=== PATIENT | female | born 1970 | race Caucasian/White ===

== ENCOUNTER → 2016-10-24 | Outpatient (CLI) | payer OTHER ==
[~2016-10-24] MED LIST: LVT.025T PO
[2016-10-24 09:35] LABS: ALANINE AMINOTRANSFERASE 26 U/L (0-55); ALBUMIN 3.9 GM/DL (3.2-4.5); ANION GAP 9 MMOL/L (5-14); ASPARTATE AMINO TRANSFERASE 28 U/L (5-34); BILIRUBIN,TOTAL 0.8 MG/DL (0.1-1.0); BLOOD UREA NITROGEN 11 MG/DL (7-18); BUN/CREATININE RATIO 14; CALCIUM 9.2 MG/DL (8.5-10.1); CARBON DIOXIDE 26 MMOL/L (21-32); CHLORIDE 103 MMOL/L (98-107); CHOLESTEROL 206 MG/DL (< 200); DIRECT LDL 151 MG/DL (1-129); GFR ESTIMATED > 60; GLUCOSE 105 MG/DL (70-105); POTASSIUM 4.3 MMOL/L (3.6-5.0); SODIUM 138 MMOL/L (135-145); TOTAL PROTEIN 7.2 GM/DL (6.4-8.2); TRIGLYCERIDES 138 MG/DL (<150); VLDL CHOLESTEROL 28 MG/DL (5-40)
[2016-10-24 09:58] LABS: THYROID STIMULATING HORMONE 3.54 UIU/ML (0.35-4.94)
== END ==
LOC: LAB 08:49
PROVIDERS: ATTEND Nurse Practitioner Family
DX: E78.2 Mixed hyperlipidemia (principal); E03.9 Hypothyroidism, unspecified
CPT/HCPCS: 36415; 80053; 80061; 84443

== ENCOUNTER 2017-02-03 13:29 | Emergency (ER) | payer OTHER ==
[~2017-02-03] VITALS: Ht 162.6 cm; Wt 107.5 kg
[2017-02-03 14:18] LABS: BILIRUBIN,URINE NEGATIVE (NEGATIVE); KETONES,URINE NEGATIVE (NEGATIVE); LEUKOCYTE ESTERASE ,URINE 2+ (NEGATIVE); NITRITE,URINE NEGATIVE (NEGATIVE); PH,URINE 6 (5-9); PROTEIN,URINE NEGATIVE (NEGATIVE); UROBILINOGEN,URINE NORMAL (NORMAL)
[2017-02-03 14:25] LABS: BASOPHILS % (AUTO) 0 % (0-10); EOSINOPHILS # (AUTO) 0.1 10^3/uL (0.0-0.3); EOSINOPHILS % (AUTO) 1 % (0-10); LYMPHOCYTES # (AUTO) 1.6 X 10^3 (1.0-4.0); LYMPHOCYTES % (AUTO) 16 % (12-44); MEAN CORPUSCULAR HEMOGLOBIN 29 PG (25-34); MEAN CORPUSCULAR HGB CONC 33 G/DL (32-36); MEAN CORPUSCULAR VOLUME 89 FL (80-99); MEAN PLATELET VOLUME 10.3 FL (7.4-10.4); MONOCYTES # (AUTO) 0.6 X 10^3 (0.0-1.0); MONOCYTES % (AUTO) 6 % (0-12); NEUTROPHILS # (AUTO) 7.8 X 10^3 (1.8-7.8); NEUTROPHILS % (AUTO) 77 % (42-75); PLATELET COUNT 231 10^3/uL (130-400); RED BLOOD COUNT 4.72 10^6/uL (4.35-5.85); RED CELL DISTRIBUTION WIDTH 14.1 % (10.0-14.5); WHITE BLOOD COUNT 10.2 10^3/uL (4.3-11.0)
[2017-02-03 14:42] VITALS: BP 136/98
[2017-02-03 14:45] LABS: ALANINE AMINOTRANSFERASE 27 U/L (0-55); ALBUMIN 4.2 GM/DL (3.2-4.5); ANION GAP 14 MMOL/L (5-14); ASPARTATE AMINO TRANSFERASE 23 U/L (5-34); BILIRUBIN,TOTAL 0.8 MG/DL (0.1-1.0); BLOOD UREA NITROGEN 11 MG/DL (7-18); BUN/CREATININE RATIO 14; CALCIUM 9.5 MG/DL (8.5-10.1); CARBON DIOXIDE 22 MMOL/L (21-32); CHLORIDE 101 MMOL/L (98-107); GFR ESTIMATED > 60; GLUCOSE 109 MG/DL (70-105); POTASSIUM 3.9 MMOL/L (3.6-5.0); SODIUM 137 MMOL/L (135-145); TOTAL PROTEIN 7.9 GM/DL (6.4-8.2)
--- NOTE | 2017-02-03 14:45 | ED General ---
General Chief Complaint: Dizziness/Syncope Stated Complaint: NAUSEA/DIZZINESS/ODD URINE ODOR Nursing Triage Note: AMB TO ROOM REPORTS HAS BEEN DIZZY SINCE SATURDAY . AND LAST 2 DAYS NOTICED URINE SMELLING LIKE FISH. Nursing Sepsis Screen: No Definite Risk Source of Information: Patient Exam Limitations: No Limitations History of Present Illness Time Seen by Provider: 13:34 Initial Comments This 46-year-old woman presents to the emergency room with complaints of feeling ill since January 28. Symptoms include a strong odor to her urine, questionable fever, nausea, loose stools, lower back pain, weakness, poor appetite, and lightheadedness particularly upon standing without vertigo. Allergies and Home Medications Allergies Coded Allergies: No Known Drug Allergies (Unverified , 09/12/09) Home Medications Levothyroxine Sodium 25 Mcg Tablet, 1 EACH PO DAILY, (Reported) Promethazine HCl 25 Mg Tablet, 25 MG PO Q6H PRN for NAUSEA/VOMITING, #10 Prescribed by: MIKIE SANTORO on 02/03/17 7763 Constitutional: see HPI EENTM: no symptoms reported Respiratory: no symptoms reported Cardiovascular: see HPI Gastrointestinal: see HPI Genitourinary: see HPI : No Musculoskeletal: see HPI Skin: no symptoms reported Psychiatric/Neurological: See HPI Hematologic/Lymphatic: No Symptoms Reported Immunological/Allergic: no symptoms reported Past Nnqfczl-Pbylqr-Nqrsgx Hx Patient Social History Alcohol Use: Denies Use Recreational Drug Use: No Smoking Status: Never a Smoker Recent Foreign Travel: No Contact w/Someone Who Travel: No Recent Infectious Disease Expo: No Surgeries History of Surgeries: Yes (wisdom teeth) Surgeries: Orthopedic Respiratory History of Respiratory Disorde: No Cardiovascular History of Cardiac Disorders: No Neurological History of Neurological Disord: No Reproductive System Hx Reproductive Disorders: No Sexually Transmitted Disease: No Genitourinary History of Genitourinary Disor: No Gastrointestinal History of Gastrointestinal Di: No Musculoskeletal History of Musculoskeletal Dis: Yes (LEFT KNEE) Endocrine History of Endocrine Disorders: Yes Endocrine Disorders: Hypothyroidsim HEENT History of HEENT Disorders: No Cancer History of Cancer: No Psychosocial History of Psychiatric Problem: No Blood Transfusions History of Blood Disorders: No Family Medical History Significant Family History: Heart Disease, Hypertension, Renal Disease (PKD), Other Conditions/Hx (hypothyroidism, Waldenstrom) Physical Exam Vital Signs Vital Sign - Last 12Hours 02/03/17 13:48 Temp 97.9 Pulse 61 Resp 18 B/P (MAP) 148/109 Pulse Ox 99 O2 Delivery Room Air Capillary Refill : Less Than 3 Seconds General Appearance: No Apparent Distress, WD/WN HEENT: PERRL/EOMI, Normal ENT Inspection, Pharynx Normal Neck: Normal Inspection, Supple, No Carotid Bruit Respiratory: Lungs Clear, Normal Breath Sounds, No Accessory Muscle Use, No Respiratory Distress Cardiovascular: Regular Rate, Rhythm, No Edema, No Murmur Gastrointestinal: Normal Bowel Sounds, Non Tender, Soft Extremity: Normal Inspection, Non Tender, No Pedal Edema Neurologic/Psychiatric: Alert, Oriented x3, No Motor/Sensory Deficits, Normal Mood/Affect, dam tender II-XII Norm as Tested, Other (disequilibrium with standing and ambulation. Normal finger to nose and heel to felix) Skin: Normal Color, Warm/Dry Progress/Results/Core Measures Suspected Sepsis Recent Fever Within 48 Hours: No Infection Criteria Present: None New/Unexplained Altered Menta: No Sepsis Screen: No Definite Risk Sepsis Diagnosis: SIRS Temperature:97.9 Pulse: 61 Respiratory Rate: 18 Laboratory Tests 02/03/17 14:19: White Blood Count 10.2 Blood Pressure 148 /109 Mean: 122 Laboratory Tests 02/03/17 14:19: Creatinine 0.80, Platelet Count 231, Total Bilirubin 0.8 Results/Orders Lab Results Laboratory Tests Test 02/03/17 14:12 02/03/17 14:19 Range/Units Urine Color YELLOW Urine Clarity CLEAR Urine pH 6 5-9 Urine Specific Edmond 1.010 L 1.016-1.022 Urine Protein NEGATIVE NEGATIVE Urine Glucose (UA) NEGATIVE NEGATIVE Urine Ketones NEGATIVE NEGATIVE Urine Nitrite NEGATIVE NEGATIVE Urine Bilirubin NEGATIVE NEGATIVE Urine Urobilinogen NORMAL NORMAL MG/DL Urine Leukocyte Esterase 2+ H NEGATIVE Urine RBC (Auto) NEGATIVE NEGATIVE Urine RBC NONE /HPF Urine WBC 2-5 /HPF Urine Squamous Epithelial Cells 10-25 H /HPF Urine Crystals NONE /LPF Urine Bacteria FEW H /HPF Urine Casts NONE /LPF Urine Mucus NEGATIVE /LPF Urine Culture Indicated NO White Blood Count 10.2 4.3-11.0 10^3/uL Red Blood Count 4.72 4.35-5.85 10^6/uL Hemoglobin 13.9 11.5-16.0 G/DL Hematocrit 42 35-52 % Mean Corpuscular Volume 89 80-99 FL Mean Corpuscular Hemoglobin 29 25-34 PG Mean Corpuscular Hemoglobin Concent 33 32-36 G/DL Red Cell Distribution Width 14.1 10.0-14.5 % Platelet Count 231 130-400 10^3/uL Mean Platelet Volume 10.3 7.4-10.4 FL Neutrophils (%) (Auto) 77 H 42-75 % Lymphocytes (%) (Auto) 16 12-44 % Monocytes (%) (Auto) 6 0-12 % Eosinophils (%) (Auto) 1 0-10 % Basophils (%) (Auto) 0 0-10 % Neutrophils # (Auto) 7.8 1.8-7.8 X 10^3 Lymphocytes # (Auto) 1.6 1.0-4.0 X 10^3 Monocytes # (Auto) 0.6 0.0-1.0 X 10^3 Eosinophils # (Auto) 0.1 0.0-0.3 10^3/uL Basophils # (Auto) 0.0 0.0-0.1 10^3/uL Sodium Level 137 135-145 MMOL/L Potassium Level 3.9 3.6-5.0 MMOL/L Chloride Level 101 98-107 MMOL/L Carbon Dioxide Level 22 21-32 MMOL/L Anion Gap 14 5-14 MMOL/L Blood Urea Nitrogen 11 7-18 MG/DL Creatinine 0.80 0.60-1.30 MG/DL Estimat Glomerular Filtration Rate > 60 BUN/Creatinine Ratio 14 Glucose Level 109 H 70-105 MG/DL Calcium Level 9.5 8.5-10.1 MG/DL Total Bilirubin 0.8 0.1-1.0 MG/DL Aspartate Amino Transf (AST/SGOT) 23 5-34 U/L Alanine Aminotransferase (ALT/SGPT) 27 0-55 U/L Alkaline Phosphatase 89 40-136 U/L Total Protein 7.9 6.4-8.2 GM/DL Albumin 4.2 3.2-4.5 GM/DL Thyroid Stimulating Hormone (TSH) 3.16 0.35-4.94 UIU/ML Free Thyroxine 0.98 0.70-1.48 NG/DL My Orders Orders - MIKIE HAIR MD Ua Culture If Indicated (02/03/17 13:34) Saline Lock/Iv-Start (02/03/17 13:58) Ekg Tracing (02/03/17 13:58) Monitor-Rhythm Ecg Trace Only (02/03/17 13:58) Cbc With Automated Diff (02/03/17 13:58) Comprehensive Metabolic Panel (02/03/17 13:58) Thyroid Stimulating Hormone (02/03/17 13:58) Free T4 (Free Thyroxine) (02/03/17 13:58) Ns Iv 1000 Ml (Sodium Chloride 0.9%) (02/03/17 15:33) Ct Angio Head/Neck (02/03/17 17:09) Iohexol Injection (Omnipaque 350 Mg/Ml 1 (02/03/17 17:15) Ns (Ivpb) (Sodium Chloride 0.9% Ivpb Bag (02/03/17 17:15) Pharmacy Communication (Pharmacy Communi (02/03/17 17:15) Ns Iv 1000 Ml (Sodium Chloride 0.9%) (02/03/17 18:10) Medications Given in ED Current Medications Medications Dose Ordered Sig/Saadia Route Start Time Stop Time Status Last Admin Dose Admin Iohexol 100 ml ONCE ONCE IV 02/03/17 17:15 02/03/17 17:16 DC 02/03/17 17:56 85 ML Sodium Chloride 100 ml ONCE ONCE IV 02/03/17 17:15 02/03/17 17:16 DC 02/03/17 17:56 80 ML Sodium Chloride 1,000 ml @ 0 mls/hr Q0M ONCE IV 02/03/17 15:33 02/03/17 15:35 DC 02/03/17 15:44 1,000 MLS/HR Sodium Chloride 1,000 ml @ 0 mls/hr Q0M ONCE IV 02/03/17 18:10 02/03/17 18:12 DC 02/03/17 18:16 1,000 MLS/HR Vital Signs/I&O Vital Sign - Last 12Hours 02/03/17 02/03/17 13:48 14:42 Temp 97.9 Pulse 61 86 Resp 18 18 B/P (MAP) 148/109 136/98 Pulse Ox 99 99 O2 Delivery Room Air Room Air Intake and Output 02/04/17 00:00 Intake Total 1000 ml Balance 1000 ml Capillary Refill : Less Than 3 Seconds Blood Pressure Mean: 122 Progress Note #1: Time: 15:35 Progress Note Workup was unremarkable. Orthostatic blood pressures failed to reviewed reveal any orthostatic hypotension. Measurement of blood pressures was difficult as the cuff would not repeat on the upper arm. A radial cuff was used. Patient did have significant lightheadedness upon standing. A trial of IV fluids will be administered and patient will be asked to try standing again after infusion is complete. Progress Note #2: Time: 17:09 Progress Note Patient still has a lightheadedness upon sitting and standing. This persists even after a liter of IV fluids. Blood pressures during sitting and standing showed no orthostatic changes. Patient states when she is walking at home she feels a disequilibrium as if walking on a boat or being off balance. She denies any spinning or vertigo-like dizziness. CT angiogram of the head and neck has been ordered to evaluate for posterior circulation defects or carotid disease. Progress Note #3: Time: 18:[address] angiogram of the head and neck was unremarkable. Feng-Hallpike maneuver was performed and was negative. Patient's symptoms may be simply related to a viral labyrinthitis. She is working on a second liter of IV fluids. She will be discharged with symptomatic management and outpatient follow-up. ECG Initial ECG Impression Date: Feb 03, 2017 Initial ECG Impression Time: 14:06 Initial ECG Rate: 62 Initial ECG Rhythm: Normal Sinus Initial ECG Intervals: Normal Initial ECG Impression: Normal Comment Normal sinus rhythm with no ST elevation or depression. No abnormal intervals or axis deviation. Departure Impression Impression: Primary Impression: Disequilibrium Additional Impressions: Weakness Loss of appetite Nausea Disposition: 01 HOME, SELF-CARE Condition: Stable Departure-Patient Inst. Decision time for Depature: 18:30 Referrals: IJEOMA FIERRO DO (PCP) Primary Care Physician LILIYA GILBERT (Family) Primary Care Physician Patient Instructions: NO INSTRUCTIONS GIVEN Add. Discharge Instructions: Discontinue sinus and decongestant medications. Follow-up with your primary care provider soon as possible. Return to emergency room if symptoms worsen. You may use Phenergan (promethazine) as prescribed for nausea. You may use meclizine per package instructions for dizziness/disequilibrium. All discharge instructions reviewed with patient and/or family. Voiced understanding. Scripts Promethazine HCl (Promethazine Tablet) 25 Mg Tablet 25 MG PO Q6H Y for NAUSEA/VOMITING, #10 TAB Prov: BRUEGGEMANN,MIKIE T MD 02/03/17 Copy Copies To 1: IJEOMA FIERRO JOSHUA T MD Feb 03, 2017 14:45
[2017-02-03 15:05] LABS: THYROID STIMULATING HORMONE 3.16 UIU/ML (0.35-4.94)
[2017-02-03] MEDS ORDERED: NS IV 1000 ML 1,000 ML IV ONE ×2 (15:33→18:10)
[2017-02-03] MEDS ORDERED: IOHEXOL 350 MG/ML 100 ML (OMNIPAQUE 350) VIAL IV ONE (17:15)
[2017-02-03] MEDS ORDERED: NS 100 ML (IVPB) BAG IV ONE (17:15)
--- NOTE | 2017-02-03 18:19 | Diagnostic Imaging Report ---
PROCEDURE: CT angiography of the head and CT angiography of the neck with and without contrast. TECHNIQUE: Contiguous noncontrast images were obtained from the skull base through the vertex. After intravenous contrast administration, helical CT angiography of the neck was performed. Source data was reformatted into multiple MIP projections. Delayed post contrast acquisition was also obtained. INDICATION: Dizziness. Weakness. Skull fracture. COMPARISON: None. FINDINGS: Noncontrast head CT demonstrates no intracranial hemorrhage, mass effect, hydrocephalus or extra axial fluid collections. No CT evidence of acute infarction. Osseous structures are intact. The paranasal sinuses and mastoids are clear. Delayed post contrast imaging demonstrates no abnormal intracranial enhancement. CTA demonstrates a conventional aortic arch. The basilar, bilateral carotid, vertebral, anterior cerebral, middle cerebral and posterior cerebral arteries are widely patent without evidence of aneurysm. Codominant vertebral arteries. The superior, anterior inferior and posterior inferior cerebellar artery origins are patent. The dural venous sinuses are grossly patent on this nondedicated exam. No acute CT findings in the cervical spine. No evidence of high-grade spinal canal narrowing. The visualized soft tissues of the neck are unremarkable. IMPRESSION: No high-grade narrowing or aneurysm involving the major arteries in the head and neck. No acute intracranial CT findings. Dictated by: Dictated on workstation # [id number]
[2017-02-03] MEDS ORDERED: PROM25TA14 PO (18:45)
[2017-02-03 18:51] VITALS: BP 137/90
== END 2017-02-03 19:01 | disposition home or self-care (01) ==
LOC: EDUNIT# 13:29 → ER 13:30
DX: E87.8 Other disorders of electrolyte and fluid balance, not elsewhere classified (principal); R63.0 Anorexia; E03.9 Hypothyroidism, unspecified; Z82.49 Family history of ischemic heart disease and other diseases of the circulatory system
CPT/HCPCS: 36415; 70496; 70498; 80053; 81000; 84439; 84443; 85025; 93005; 93041

== ENCOUNTER → 2017-02-12 | Outpatient (CLI) | payer OTHER ==
[~2017-02-12] MED LIST changes: +PROM25TA14 PO
--- NOTE | 2017-02-13 18:32 | Diagnostic Imaging Report ---
Bilateral screening mammogram 2D views with tomosynthesis The current study was also evaluated with a Computer Aided Detection (CAD) system. Indication: Screening. No current complaints stated on the questionnaire. COMPARISON: 03/27/2011. FINDINGS: The breasts are composed of scattered fibroglandular densities. Scattered benign-appearing calcifications are seen. Allowing for technique and positional differences, no suspicious change is seen. IMPRESSION: No significant change. ACR BI-RADS Category 2: Benign findings. Result letter will be mailed to the patient. Note: At least 10% of breast cancer is not imaged by mammography. Dictated by: Dictated on workstation # [id number]
== END ==
LOC: RAD 09:11
PROVIDERS: ATTEND Nurse Practitioner Family
DX: Z12.31 Encounter for screening mammogram for malignant neoplasm of breast (principal)
CPT/HCPCS: 77067

== ENCOUNTER 2017-06-29 13:11 | Emergency (ER) | payer OTHER ==
[~2017-06-29] VITALS: Ht 162.6 cm; Wt 127.0 kg
[2017-06-29] MEDS ORDERED: RT-ALBUTEROL/IPRATROPIUM 3 ML (DUONEB) VIAL INH ONE (13:30)
--- NOTE | 2017-06-29 13:33 | ED Cough/URI ---
General Stated Complaint: COUGH Source: patient Exam Limitations: no limitations History of Present Illness Date Seen by Provider: Jun 29, 2017 Time Seen by Provider: 13:29 Initial Comments This 47-year-old white female presents with right chest pain secondary to a persistent cough that she's had for the last 3 weeks. The patient is seen her caregiver 3 times and treated with [id number] cough medication and subsequently Azo azithromycin. There's been no improvement in the cough and the right-sided chest pain that she has experienced has progressed. Her caregiver had indicated that after obtaining a chest x-ray which demonstrated an abnormality that she wanted a CT of the chest which she planned for next week. The patient is very concerned and would like to obtain a CT as soon as possible. The patient denies hemoptysis, productive cough, associated headache stiff neck or photophobia, abdominal pain, nausea or vomiting. Allergies and Home Medications Allergies Coded Allergies: No Known Drug Allergies (Unverified , 09/12/09) Home Medications Levothyroxine Sodium 25 Mcg Tablet, 1 EACH PO DAILY, (Reported) Promethazine HCl 25 Mg Tablet, 25 MG PO Q6H PRN for NAUSEA/VOMITING Prescribed by: MIKIE SANTORO on 02/03/17 0487 Patient Home Medication List Home Medication List Reviewed: Yes Review of Systems Constitutional: No chills, No fever EENTM: no symptoms reported Respiratory: see HPI, cough, other (right-sided chest pain with coughing) Cardiovascular: chest pain (right-sided chest pain with cough) Gastrointestinal: No abdominal pain, No nausea, No vomiting Genitourinary: no symptoms reported Musculoskeletal: No back pain, No joint pain Skin: No rash Psychiatric/Neurological: Denies Anxiety, Denies Depressed Hematologic/Lymphatic: No Symptoms Reported Immunological/Allergic: no symptoms reported Past Rxcfkbb-Nubycq-Mfwgqd Hx Patient Social History Recent Foreign Travel: No Contact w/Someone Who Travel: No Past Medical History Surgeries: Yes (wisdom teeth) Orthopedic Respiratory: No Cardiac: No Neurological: No Reproductive Disorders: No Sexually Transmitted Disease: No Genitourinary: No Gastrointestinal: No Musculoskeletal: Yes (LEFT KNEE) Endocrine: Yes Hypothyroidsim HEENT: No Cancer: No Psychosocial: No Blood Disorders: No Family Medical History Reviewed Nursing Family Hx Heart Disease, Hypertension, Renal Disease, Other Conditions/Hx Physical Exam Vital Signs Vital Signs - First Documented Capillary Refill : General Appearance: WD/WN, no apparent distress Eyes: Bilateral Eye Normal Inspection HEENT: normal ENT inspection Neck: non-tender, full range of motion, supple Respiratory: chest non-tender, lungs clear, other (a persistent nonproductive cough is noted on exam.) Cardiovascular: regular rate, rhythm Gastrointestinal: normal bowel sounds, non tender Extremities: normal range of motion, non-tender, normal inspection Neurologic/Psychiatric: no motor/sensory deficits, alert, normal mood/affect, oriented x 3 Skin: normal color Progress/Results/Core Measures Suspected Sepsis SIRS Temperature: Pulse: Respiratory Rate: Laboratory Tests 06/29/17 13:28: White Blood Count 7.9 Blood Pressure / Mean: Laboratory Tests 06/29/17 13:28: Creatinine 0.75, Platelet Count 276, Total Bilirubin 0.7 Results/Orders Lab Results Laboratory Tests Test 06/29/17 13:28 Range/Units White Blood Count 7.9 4.3-11.0 10^3/uL Red Blood Count 4.48 4.35-5.85 10^6/uL Hemoglobin 13.1 11.5-16.0 G/DL Hematocrit 40 35-52 % Mean Corpuscular Volume 89 80-99 FL Mean Corpuscular Hemoglobin 29 25-34 PG Mean Corpuscular Hemoglobin Concent 33 32-36 G/DL Red Cell Distribution Width 14.3 10.0-14.5 % Platelet Count 276 130-400 10^3/uL Mean Platelet Volume 9.8 7.4-10.4 FL Neutrophils (%) (Auto) 65 42-75 % Lymphocytes (%) (Auto) 26 12-44 % Monocytes (%) (Auto) 6 0-12 % Eosinophils (%) (Auto) 3 0-10 % Basophils (%) (Auto) 1 0-10 % Neutrophils # (Auto) 5.1 1.8-7.8 X 10^3 Lymphocytes # (Auto) 2.0 1.0-4.0 X 10^3 Monocytes # (Auto) 0.5 0.0-1.0 X 10^3 Eosinophils # (Auto) 0.2 0.0-0.3 10^3/uL Basophils # (Auto) 0.1 0.0-0.1 10^3/uL Sodium Level 139 135-145 MMOL/L Potassium Level 4.3 3.6-5.0 MMOL/L Chloride Level 102 98-107 MMOL/L Carbon Dioxide Level 26 21-32 MMOL/L Anion Gap 11 5-14 MMOL/L Blood Urea Nitrogen 11 7-18 MG/DL Creatinine 0.75 0.60-1.30 MG/DL Estimat Glomerular Filtration Rate > 60 BUN/Creatinine Ratio 15 Glucose Level 103 70-105 MG/DL Calcium Level 9.7 8.5-10.1 MG/DL Total Bilirubin 0.7 0.1-1.0 MG/DL Aspartate Amino Transf (AST/SGOT) 40 H 5-34 U/L Alanine Aminotransferase (ALT/SGPT) 35 0-55 U/L Alkaline Phosphatase 73 40-136 U/L Total Protein 8.0 6.4-8.2 GM/DL Albumin 4.3 3.2-4.5 GM/DL My Orders Orders - CRISSY BARILLAS MD Ct Chest W (06/29/17 13:24) Cbc With Automated Diff (06/29/17 13:24) Comprehensive Metabolic Panel (06/29/17 13:24) Albuterol/Ipra Inhalation Soln (Duoneb I (06/29/17 13:30) Svn Sm Volume Nebulizer Rt-Rfs (06/29/17 13:24) Iohexol Injection (Omnipaque 350 Mg/Ml 1 (06/29/17 13:45) Sodium Chloride Flush (Catheter Flush Sy (06/29/17 13:45) Ns (Ivpb) (Sodium Chloride 0.9%) (06/29/17 13:45) Pharmacy Communication (Pharmacy Communi (06/29/17 13:38) Chest Pa/Lat (2 View) (06/29/17 14:28) Methylprednisolone Sod Succ (Solu-Medrol (06/29/17 15:15) Levofloxacin 750 Mg/150 Ml Iv (Levaquin (06/29/17 15:15) Medications Given in ED Current Medications Medications Dose Ordered Sig/Saadia Route Start Time Stop Time Status Last Admin Dose Admin Albuterol/ Ipratropium 3 ml ONCE ONCE INH 06/29/17 13:30 06/29/17 13:31 DC 06/29/17 14:09 3 ML Iohexol 100 ml ONCE ONCE IV 06/29/17 13:45 06/29/17 13:46 DC 06/29/17 13:58 75 ML Sodium Chloride 10 ml NEEDED PRN IV 06/29/17 13:45 06/29/17 13:58 10 ML Sodium Chloride 250 ml ONCE ONCE IV 06/29/17 13:45 06/29/17 13:46 DC 06/29/17 13:58 80 ML Vital Signs/I&O 06/29/17 06/29/17 06/29/17 13:31 13:31 14:09 Temp 97.1 Pulse 87 Resp 18 B/P (MAP) 154/85 (108) Pulse Ox 99 97 O2 Delivery Room Air Room Air Room Air Capillary Refill : Progress Note : Time: 15:32 Progress Note The patient's white count was unremarkable. The patient's CT of the chest demonstrated infiltrate in the left upper lobe. I did a chest x-ray to facilitate following the patient for her pneumonia. Although I did not appreciate an infiltrate I talked with the radiologist, Dr. Simon, who said that although it was supple there was an infiltrate there. I discussed the presentation further with the radiologist and he said that he did not believe there was any PE present and that this was consistent with pneumonia. I talked with Dr. Colin who recommended that we treat the patient with antibiotics steroids and a cough suppressant. We discussed possibilities and she was kind enough to allow me to use Levaquin. We will give the patient a 5 day course of prednisone. Tussionex will be prescribed to suppress cough. Patient will follow up on Saturday at [facility] with Dr. Colin. Departure Communication (Admissions) Time/Spoke to Consulting Phy: 15:40 Dr. Colin. Impression Primary Impression: Pleurisy Additional Impression: Left upper lobe pneumonia Qualified Codes: J18.1 - Lobar pneumonia, unspecified organism Disposition: HOME, SELF-CARE Condition: Improved Departure-Patient Inst. Decision time for Depature: 15:40 Referrals: IJEOMA FIERRO DO (PCP) Primary Care Physician LILIYA GILBERT (Family) Primary Care Physician CARMELITA COLIN MD Patient Instructions: Pneumonia, Adult (DC) Add. Discharge Instructions: Prednisone, Levaquin, and Tussionex as prescribed. Close follow-up with Dr. Colin at [facility] on Saturday. Return if any problems or questions. CRISSY BARILLAS MD Jun 29, 2017 13:33
[2017-06-29 13:36] LABS: BASOPHILS # (AUTO) 0.1 10^3/uL (0.0-0.1); BASOPHILS % (AUTO) 1 % (0-10); EOSINOPHILS # (AUTO) 0.2 10^3/uL (0.0-0.3); EOSINOPHILS % (AUTO) 3 % (0-10); HEMATOCRIT 40 % (35-52); HEMOGLOBIN 13.1 G/DL (11.5-16.0); LYMPHOCYTES % (AUTO) 26 % (12-44); MEAN CORPUSCULAR HEMOGLOBIN 29 PG (25-34); MEAN CORPUSCULAR HGB CONC 33 G/DL (32-36); MEAN CORPUSCULAR VOLUME 89 FL (80-99); MEAN PLATELET VOLUME 9.8 FL (7.4-10.4); MONOCYTES # (AUTO) 0.5 X 10^3 (0.0-1.0); MONOCYTES % (AUTO) 6 % (0-12); NEUTROPHILS # (AUTO) 5.1 X 10^3 (1.8-7.8); NEUTROPHILS % (AUTO) 65 % (42-75); PLATELET COUNT 276 10^3/uL (130-400); RED BLOOD COUNT 4.48 10^6/uL (4.35-5.85); RED CELL DISTRIBUTION WIDTH 14.3 % (10.0-14.5); WHITE BLOOD COUNT 7.9 10^3/uL (4.3-11.0)
[2017-06-29] MEDS ORDERED: NS 250 ML (IVPB) BAG IV ONE (13:45)
[2017-06-29] MEDS ORDERED: IOHEXOL 350 MG/ML 100 ML (OMNIPAQUE 350) VIAL IV ONE (13:45)
[2017-06-29] MEDS ORDERED: CATHETER FLUSH 10 ML SYR IV PRN (13:45)
[2017-06-29 13:54] LABS: ALANINE AMINOTRANSFERASE 35 U/L (0-55); ALBUMIN 4.3 GM/DL (3.2-4.5); ALKALINE PHOSPHATASE 73 U/L (40-136); BILIRUBIN,TOTAL 0.7 MG/DL (0.1-1.0); BUN/CREATININE RATIO 15; CALCIUM 9.7 MG/DL (8.5-10.1); CARBON DIOXIDE 26 MMOL/L (21-32); CHLORIDE 102 MMOL/L (98-107); CREATININE SERUM 0.75 MG/DL (0.60-1.30); GFR ESTIMATED > 60; GLUCOSE 103 MG/DL (70-105); POTASSIUM 4.3 MMOL/L (3.6-5.0); SODIUM 139 MMOL/L (135-145)
--- NOTE | 2017-06-29 14:17 | Diagnostic Imaging Report ---
PROCEDURE: CT chest with contrast only. TECHNIQUE: Multiple contiguous axial images were obtained through the chest after administration of intravenous contrast. DATE: 06/29/2017. COMPARISON: None. INDICATION: A 47-year-old female, cough for 3 weeks. Chest pain. FINDINGS: There is a peripheral nodular area of consolidation in the right lower lobe measuring 6 mm in size on image 31 which may potentially reflect focal atelectasis versus pulmonary nodule. There is a 3 mm right lower lobe pulmonary nodule on axial image 40. There is a 2 mm right lower lobe pulmonary nodule on axial image 30. There is tree in bud nodularity with adjacent hazy consolidation in the left upper lobe on axial image 25 and adjacent sequential images. There is a 3 mm noncalcified left lower lobe pulmonary nodule on axial image 42 which may be pleurally based. There is no additional focal airspace consolidation. There is no pneumothorax. There is no pleural effusion. The central airways are patent. There is limited evaluation for pulmonary embolus given the timing of the contrast bolus. There is no large central embolus. The heart is not enlarged. There is no paracardial effusion. There are subcentimeter short axis paratracheal lymph nodes. There is no identified mediastinal, hilar, or axillary lymph node which specifically meets CT size criteria for adenopathy. The liver appears very mildly diffusely decreased in attenuation suggesting mild diffuse fatty infiltration of the liver. Additional limited evaluation of the visualized portions of the upper abdomen is unremarkable. There is no identified acute bony abnormality. IMPRESSION: CT CHEST. 1. Tree in bud nodularity in the left upper lobe with adjacent hazy lung opacities most suggestive of bronchiolitis/pneumonia. Aspiration would be the primary differential diagnostic consideration. The tree in bud pattern is suggestive of a process which spreads via endobronchial means. 2. Additional subcentimeter pulmonary nodules. Recommend followup CT chest in 6 months to evaluate for stability. Dictated by: Dictated on workstation # [id number]
[2017-06-29] MEDS ORDERED: LEVOFLOXACIN 750 MG/150 ML IV 150 ML IV ONE (15:15)
[2017-06-29] MEDS ORDERED: methylPREDNISolone 125 MG (Solu-MEDROL) VIAL IVP ONE (15:15)
--- NOTE | 2017-06-29 15:35 | Diagnostic Imaging Report ---
EXAMINATION: CHEST (PA AND LATERAL) CLINICAL INDICATION: 47-year-old female, chest pain. Evaluation for pneumonia. COMPARISON: CT chest 06/29/2017. FINDINGS: Heart size and mediastinal contours are unremarkable. There are subtle reticulonodular opacities identified in the left midlung correlating with the findings on the same-day CT chest. There is no pleural effusion. The right lung is grossly clear. IMPRESSION: 1. Reticulonodular opacities in the left midlung correlating with findings on CT. An infectious etiology is favored. Aspiration would be the differential diagnostic consideration. 2. No additionally identified acute cardiopulmonary abnormality. Dictated by: Dictated on workstation # [id number]
[2017-06-29 18:08] VITALS: BP 139/97
== END 2017-06-29 18:08 | disposition home or self-care (01) ==
LOC: EDUNIT# 13:11 → ER 13:12
DX: J18.1 Lobar pneumonia, unspecified organism (principal); E03.9 Hypothyroidism, unspecified; Z87.39 Personal history of other diseases of the musculoskeletal system and connective tissue; Z98.890 Other specified postprocedural states
CPT/HCPCS: 36415; 71046; 71260; 80053; 83605; 85025; 87040; 94640; 96365; 96375